=== PATIENT | male | born 1985 | race Caucasian/White ===

== ENCOUNTER → 2021-05-27 15:24 | Outpatient (CLI) | payer SELFPAY | PROVIDERS: Referring Provider Physician Assistant Medical; Visit Provider Physician Assistant Medical | DX: J02.9 Acute pharyngitis, unspecified (principal); R50.9 Fever, unspecified | CPT/HCPCS: 87635; U0005; U0003 ==

== ENCOUNTER 2021-06-01 12:45 | Outpatient (CLI) | payer SELFPAY ==
[2021-06-01 13:03] VITALS: BP 149/90; PULSE 102; RESP 18; TEMP 36.8; O2SAT 100; BMI 33.0
[2021-06-01] MEDS: 0.9% Saline Lock 10 ML Syringe IV (13:06)
[2021-06-01 13:45] VITALS: BP 131/92; PULSE 93; RESP 16; TEMP 37.7; O2SAT 97
[2021-06-01 14:43] VITALS: BP 143/99; PULSE 89; RESP 18; TEMP 38; O2SAT 98
== END 2021-06-01 14:44 | disposition home or self-care (01) ==
LOC: MS3OUT 12:45 → MS3 12:47
PROVIDERS: Referring Provider Nurse Practitioner Adult Health; Visit Provider Nurse Practitioner Adult Health
DX: Z23 Encounter for immunization (principal); U07.1 COVID-19
CPT/HCPCS: J7050; M0243; A4216; Q0244

== ENCOUNTER 2023-02-02 13:28 | Emergency (ER) | payer SELFPAY, OTHER ==
[2023-02-02 13:29] VITALS: BP 200/140; PULSE 88; RESP 20; TEMP 36.9; O2SAT 96; BMI 34.5
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
[2023-02-02] MEDS: Morphine 4 MG/ML Syringe IM (13:55)
[2023-02-02] MEDS: Ondansetron ODT 4 MG Tablet PO (13:55)
[2023-02-02] MEDS: Ibuprofen 200 MG Tablet 800 MG PO (15:26)
[2023-02-02 15:37] VITALS: BP 157/83; PULSE 60; RESP 16; O2SAT 95
== END 2023-02-02 16:07 | disposition home or self-care (01) ==
PROVIDERS: Emergency Provider Emergency Medicine; Visit Provider Emergency Medicine
DX: M54.9 Dorsalgia, unspecified (principal); I10 Essential (primary) hypertension; V43.52XA Car driver injured in collision with other type car in traffic accident, initial encounter
CPT/HCPCS: 71046; 72072; 96372; 99285

== ENCOUNTER → 2024-08-27 | Outpatient (CLI) | payer SELFPAY ==
[2024-08-27 09:16] LABS: Bacteria 0 SEEN /hpf (None Seen); Mucous, Urine 0 SEEN /hpf (<or=2+); Red Blood Cells-Urine 0 SEEN /hpf (0-5); Squamous Epithelial Cells - UA 0 SEEN /hpf (0-5); White Blood Cells 0 SEEN /hpf (0-5)
[2024-08-27 10:14] LABS: Absolute Lymphocyte Count 1.97 X10^3/uL (0.83-4.51); Absolute Neutrophil Count 5.6 X10^3/uL (2.0-7.7); Basophil# 0.08 X10^3/uL; Basophil% 0.9 % (0-1); Eosinophil# 0.14 X10^3/uL; Eosinophils% 1.7 % (0-5); Hematocrit 51.9 % (40-54); Hemoglobin 17.9 g/dL (13.0-16.5); Lymphocyte # 1.97 X10^3/ul (0.83-4.51); Lymphocyte % 23.3 % (19-41); Mean Corp Hgb Conc 34.5 g/dL (32-36); Mean Corpuscular Hgb 29.2 pg (27.0-32.0); Mean Corpuscular Volume 84.5 fL (80-94); Mean Platelet Vol. 10.7 fl (6.2-12.0); Monocyte# 0.63 X10^3/uL; Monocyte% 7.5 % (0-10); NRBC Flagged by Analyzer 0 % (0-5); Neutrophil # 5.59 X10^3/uL (2.7-7.7); Neutrophil % 66.2 % (47-70); Platelet Count 288 K/mm3 (150-450); RBC Distribution Width CV 12.6 % (11.6-14.6); RBC Distribution Width SD 38.9 fl (35.1-43.9); Red Blood Count 6.14 M/mm3 (4.6-6.2); White Blood Count 8.4 K/mm3 (4.4-11.0)
[2024-08-27 10:22] LABS: Color, Urine Yellow (Yellow); Glucose, Dipstick Normal (Normal); Ketone-Dipstick Negative (Negative); Leukocyte Esterase-Dipstick Negative /ul (Negative); Nitrite-Dipstick Negative (Negative); Occult Blood-Urine Negative /ul (Negative); Protein-Dipstick 15 mg/dl (Negative); Urine Bilirubin Dipstick Negative (Negative); Urine Clarity Clear (Clear); Urine Urobilinogen Normal (Normal); Urine pH 6.5 (5.0 - 8.0)
[2024-08-27 10:59] LABS: ALB/GLOB Ratio 0.9 RATIO (0.9-2.4); AST(SGOT) 27 U/L (15-37); Alanine Aminotransfer ALT/SGPT 58 U/L (16-61); Albumin, Serum 3.9 g/dL (3.2-5.0); Alkaline Phosphatase 116 U/L (45-117); Anion Gap 6 (5-15); BUN 12 mg/dL (7-18); BUN/Creat Ratio 11.8 RATIO (10-20); Calcium,Total 9.4 mg/dL (8.5-10.1); Chloride 104 mmol/L (98-107); Cholesterol 172 mg/dL (200); Creatinine, Serum 1.02 mg/dL (0.70-1.30); EST Glomerular Filtration Rate 86 mL/min (>60); Est Glom Filt Rate - Afr Amer 105 mL/min (>60); Globulin 4.4 g/dL (2.2-4.2); Glucose 110 mg/dL (74-106); High Density Lipoprotein 40 mg/dL; Magnesium 2.1 mg/dL (1.6-2.6); Protein, Total 8.3 g/dL (6.4-8.2); Sodium Level 137 mmol/L (136-145); Thyroid Stim Hormone (TSH) 0.782 uIU/mL (0.358-3.740); Triglycerides 211 mg/dL; Very Low Density Lipoprotein 42 mg/dL (5-40)
[2024-08-28 11:26] LABS: Ferritin 135 ng/mL (26-388)
[2024-08-28 11:50] LABS: Hemoglobin A1c 5.3 % (3.8-5.6)
== END | disposition home or self-care (01) ==
PROVIDERS: PCP Family Medicine; Referring Provider Family Medicine; Visit Provider Family Medicine
DX: I10 Essential (primary) hypertension (principal); D75.1 Secondary polycythemia; R73.09 Other abnormal glucose
CPT/HCPCS: 36415; 80053; 80061; 81001; 82728; 83036; 83735; 84443; 85025

== ENCOUNTER → 2024-09-16 | Outpatient (CLI) | payer SELFPAY ==
--- NOTE | 2024-09-16 08:59 | RDU_ITS ---
Reason For Study: HTN Right Renal Artery Left Renal Artery Right renal artery ostium 79.6/28.5 Left renal artery ostium 86.9/17.5 RSV/EDV. PSV/EDV. Right renal artery proximal Left renal artery proximal PSV/EDV 51.2/21.4 PSV/EDV. 81.5/21.2 . Right renal artery mid 64.6/23.2 Left renal artery mid 86.9/32.1 PSV/EDV. PSV/EDV . Right renal artery distal 70.8/35.1 Left renal artery distal 42.7/12.3 PSV/EDV. PSV/EDV. Right RAR 1.3. Left RAR 1.4. Right Renal Parenchyma Left Renal Parenchyma Upper Pole Medula 28.6/11.6 Left upper pole medulla 19.9/8.9 PSV/EDV. PSV/EDV . Right upper pole medulla EDR 0.4 . Left upper pole medulla EDR 0.4 . Right upper pole medulla R.I. Left upper pole medulla R.I. 0.55 . 0.59 . UP Cortex 23.2/6.2 PSV/EDV. Upper Geo Cortx 23.7/10.5 PSV/EDV. Left upper pole cortex EDR 0.3 . Right upper pole cortex EDR 0.4 . Left upper pole cortex R.I. 0.73 . Right upper pole cortex R.I. 0.56 . Left lower Pole medulla 27.0/8.9 Right lower Pole medulla 31.0/12.6 PSV/EDV . PSV/EDV . Left lower pole medulla EDR 0.3 . Right lower pole medulla EDR 0.4 . Left lower pole medulla R.I. 0.67 . Right lower pole medulla R.I. Lower Pole Cortx 19.3/8.5 PSV/EDV. 0.59 . Left lower pole cortex EDR 0.4 . Lower Pole Cortex 15.9/6.3 PSV/EDV. Left lower pole cortex R.I. 0.56 . Right lower pole cortex EDR 0.4 . Left Renal Hilar Right lower pole cortex R.I. 0.61 . LT Hilar avg 55.5/22.7 PSV/EDV . Right Renal Hilar Left hilar acceleration time 0.04 Right Hilar avg 75.8/29.3 PSV/EDV. m/sec. Right hilar acceleration time 0.06 Left Renal Dimensions m/sec. Left kidney size 10.93 cm . Right Renal Dimensions Left cortical dimension 1.98 cm . Right kidney size 11.97 cm . Right cortical dimension 2.40 cm . Aorta Proximal abdominal aorta 2.05x1.91 cm . Proximal abdominal aorta peak systolic velocity is 63.3 cm/sec . Distal abdominal aorta 1.71x1.89 cm . Distal abdominal aorta peak systolic velocity is 88.8 cm/sec . VL/Renal Artery Duplex Ultrasound Interpretation Summary Right renal artery patent with normal velocities and no evidence of stenosis. Left renal artery patent with normal velocities and no evidence of stenosis. Right renal vein patent. Left renal vein patent. Right kidney normal in size. Left kidney normal in size. Ordering Physician: Chay Roque Referring Physician: Chay Roque Performed By: Facundo Higgins RVT and Student
== END | disposition home or self-care (01) ==
PROVIDERS: PCP Family Medicine; Referring Provider Family Medicine; Visit Provider Family Medicine
DX: I10 Essential (primary) hypertension (principal)
CPT/HCPCS: 93975